=== PATIENT | female | born 1950 | race Asian ===

== ENCOUNTER 2025-09-11 08:31 | Outpatient (CLI) | payer MEDICARE ==
[2025-09-11] VITALS (8 sets, daily range): BP systolic 102–137; BP diastolic 58–73; PULSE 62–85; RESP 12–20; O2SAT 96–97
[2025-09-11] MEDS ORDERED: MIDAZOLAM HCL 2MG/2ML 2ml VIAL (1mg/ml) IV ONE (09:15)
[2025-09-11] MEDS ORDERED: fentaNYL CITRATE 100 MCG/2 ML VL IV ONE (09:15)
[2025-09-11] MEDS: MIDAZOLAM HCL 2MG/2ML 2ml VIAL (1mg/ml) ONE (09:25)
[2025-09-11] MEDS: fentaNYL CITRATE 100 MCG/2 ML VL ONE (09:26)
--- NOTE | 2025-09-11 10:28 | DVH ---
US US GUIDANCE FOR NEEDLE PLACEME, HISTORY: ABNORMAL LFT, FATTY LIVER PROCEDURE: Informed consent was obtained. The patient was placed supine on the gurney, and limited US was performed of the liver. IV sedation was administered. The skin over the area of interest was prepped with chlorhexidine which was allowed to dry and draped in the usual sterile fashion. Time out was performed. 1% local lidocaine was administered. With intermittent US guidance, Temno 17 gauge outer coaxial guiding needle was advanced into the liver. Multiple biopsies were obtained using Temno 18 gauge inner core biopsy needle. The specimens were placed in formalin and sent to pathology for analysis. The needle was withdrawn , and the visceral tract embolized with gelfoam pledgets. Post procedural images were obtained. No immediate complication was identified. SEDATION: Dr. Bryant Falcon was personally responsible for the administration of moderate sedation during the procedure performed, including the use of an independent trained observer who had no other duties during the procedure. The drugs utilized were IV fentanyl and versed (see nursing log for details). The total time of supervision by the attending physician was approximately 30 minutes. FINDINGS: Intra-procedural images demonstrate biopsy needle within the liver. Post procedural images do not demonstrate any significant hemorrhage. IMPRESSION: US guided random liver biopsy. Pathology results pending.
== END 2025-09-11 17:00 | disposition home or self-care (01) ==
LOC: US 08:31
PROVIDERS: ATTEND Internal Medicine Gastroenterology
DX: K76.0 Fatty (change of) liver, not elsewhere classified (principal); D76.1 Hemophagocytic lymphohistiocytosis; K76.89 Other specified diseases of liver; R79.89 Other specified abnormal findings of blood chemistry; R94.5 Abnormal results of liver function studies; E78.5 Hyperlipidemia, unspecified; Z79.899 Other long term (current) drug therapy; Z85.07 Personal history of malignant neoplasm of pancreas
CPT/HCPCS: 47000; 76942; 88307; 88313; J2250; J3010; 76705; 99152; 99153